=== PATIENT | female | born 1950 | race Caucasian/White ===

== ENCOUNTER → 2016-11-11 | Outpatient (CLI) | payer OTHER ==
[~2016-11-11] MED LIST: ALBU8.5H3 INH; AMLO-218 PO; ASPI-465 PO; CARV3.1260 PO; LEVO150T64 PO; LOSA100T7 PO; METF500T4 PO; OPHTHALMIC IRRIG SOLUTION 120 ML ONE; PHENYLephrine 10% 5 ML OPH ONE; PRAV80TA27 PO; PROPARACAINE 0.5% 15 ML OPH ONE; TROPICAMIDE 1% 3 ML OPH ONE
== END | disposition home or self-care (01) ==
LOC: RAD 11:28
PROVIDERS: ATTEND Ophthalmology
DX: H26.491 Other secondary cataract, right eye (principal)
CPT/HCPCS: 66821

== ENCOUNTER 2017-10-05 06:59 | Day surgery (SDC) | END 2017-10-05 10:51 | disposition home or self-care (01) ==